=== PATIENT | male | born 1950 | race Caucasian/White ===

== ENCOUNTER → 2017-08-20 | Day surgery (SDC) | payer MEDICARE, OTHER ==
[~2017-08-20] MED LIST: BUPIVACAINE HCL PF 0.75% 30 ML VIAL ONE; CLINDAMYCIN PHOS 900 MG/6 ML VIAL ONE; DIAZ5 PO; LACTATED RINGER'S 1000 ML INJ 1,000 ML ONE; LIDOCAINE 1.5%/EPINEPHrine 1:200,000 PF SOLN 30 ML AMP ONE; MECL-62 PO; MIDAZOLAM HCL 5 MG/ML VIAL (1 ML) ONE; MORP15TA3 PO; MS C15TA7 PO; OMEP10CA37 PO; PROPOFOL 500 MG/50 ML BTL IV ONE; SODIUM CHLORIDE 0.9% INJ 100 ML IV ONE; VITA400C70 PO; VITA500C PO; VITATAB25 PO
--- NOTE | 2017-08-20 22:17 | MP ---
cc: BLANKA RINALDI DATE OF SURGERY 08/20/17 PREOPERATIVE DIAGNOSIS 1. Left shoulder full-thickness rotator cuff tear 2. Superior anterior, superior posterior labral tear 3. Biceps tendon tear 4. Impingement syndrome 5. Acromioclavicular arthritis POSTOPERATIVE DIAGNOSIS 1. Left shoulder full-thickness rotator cuff tear 2. Superior anterior, superior posterior labral tear 3. Biceps tendon tear 4. Impingement syndrome 5. Acromioclavicular arthritis PROCEDURE 1. Left shoulder arthroscopic rotator cuff repair using Arthrex speed bridge implant x4 2. Left shoulder arthroscopic extensive debridement biceps tendon superior labrum, anterior labrum, inferior labrum, posterior labrum. 3. Left shoulder arthroscopic distal clavicle excision removing 10 mm of bone 4. Left shoulder arthroscopic subacromial decompression. ANESTHESIA Interscalene block and general SURGEON Vin Rinaldi MD [employer]IC[employer] IN[employer]MENT SALES ASSISTANT CONRAD Mack TOMASA Blevins is an adult male with persistent debilitating left shoulder pain. He had pain at multiple locations including directly over his acromioclavicular joint as well as anterior well as lateral. MRI scan shows multiple abnormalities. Based on this and failure to improve with conservative measures, he is offered arthroscopic surgery. Risks, benefits and alternatives were thoroughly discussed and a detailed informed stent was obtained. The assistant store director Javad Liu is an advanced registered nurse practitioner. His skill set was medically necessary for the performance of the operation. PROCEDURE IN DETAIL The patient is brought to the operating room, placed under general anesthetic. The left shoulder was prepped and draped usual sterile fashion. IV antibiotics given. Time-out was completed. Posterior portal made at the junction of middle and anterior thirds and eventually two accessory portals were made. A blunt trocar was used to introduce the cannula. The first photograph shows significant fraying about the superior labrum and the biceps tendon. We looked upwards and saw a full-thickness tear of the rotator cuff. We made our lateral based portal and brought the shaver in from this position and we debrided the superior labrum and biceps tendon. There was fraying in the anterior labrum, the inferior labrum and posterior labrum and all of these areas were addressed with the arthroscopic shaver, smoothing and fine-tuning and then obtaining hemostasis with the use of electrocautery. The biceps tendon was not more than 50% torn and did not appear to be subluxating out of position. From inside the joint, we proceeded to debride the unstable fibers of the rotator cuff and prepare the footprint for repair. We then went into the subacromial space and prepared for this angle and proceeded with our speed bridge technique with suture anchor at the articular margin of the humeral head and two based laterally. We did [id number] stitches as well at the superficial layer. The cuff tissue lateralized to the bleeding bone very nicely. Final photograph shows the result. We then visualized the anterior acromial spur and performed anterior acromionectomy and follow-up photograph taken here. We then visualized the acromioclavicular joint, took the soft tissues away and then photographed this and then proceeded with our distal clavicle excision using the arthroscopic bur, removing 10 mm of bone with follow-up photograph taken here. Electrocautery was obtained. Hemostasis was very good. No loose body is identified. Arthroscopic equipment removed. Portals closed with absorbable sutures. Steri-Strips applied. Sterile dressing applied. The patient was awaken, returned to recovery room in stable condition. MD TAY Kearns/ /2:21 PM /9:53 PM
== END | disposition home or self-care (01) ==
LOC: ESDC 08:28
PROVIDERS: ATTEND Orthopaedic Surgery Sports Medicine
DX: M75.122 Complete rotator cuff tear or rupture of left shoulder, not specified as traumatic (principal); S43.432A Superior glenoid labrum lesion of left shoulder, initial encounter; S46.212A Strain of muscle, fascia and tendon of other parts of biceps, left arm, initial encounter; M75.42 Impingement syndrome of left shoulder; M19.012 Primary osteoarthritis, left shoulder
CPT/HCPCS: 01630; 01991; 29823; 29824; 29826; 29827; 64417; C1713; J2250; J7120